=== PATIENT | female | born 1995 | race Caucasian/White ===

== ENCOUNTER 2022-07-20 07:29 | Emergency (ER) | payer OTHER ==
[~2022-07-20] VITALS: Ht 172.7 cm; Wt 66.0 kg
[2022-07-20] MEDS ORDERED: DASETTA1 EACH PO (07:42)
[2022-07-20] MEDS ORDERED: ONDANSETRON ODT8 MG PO (08:46)
[2022-07-20 09:04] VITALS: BP 115/71
== END 2022-07-20 09:07 | disposition home or self-care (01) ==
LOC: ED 07:29
DX: K29.00 Acute gastritis without bleeding (principal); Z91.018 Allergy to other foods; Z79.899 Other long term (current) drug therapy
CPT/HCPCS: 36415; 80053; 83690; 84703; 85025; 96374; 99284-25; J2405; J7030